=== PATIENT | female | born 1960 | race Caucasian/White ===

== ENCOUNTER → 2024-07-25 11:50 | Outpatient (REF) | payer MEDICARE, BC, SELFPAY ==
[2024-07-25 13:44] LABS: % Basophils 1.2 % (0-2); % Eosinophils 4.7 % (0-6); % Monocytes 8.5 % (1.7-9.3); % Neutrophils 45.6 % (42.2-75.2); Absolute Basophils 0.1 10^3/uL (0-0.2); Absolute Eosinophils 0.2 10^3/uL (0-0.7); Absolute Lymphocytes 1.9 10^3/uL (1.2-3.4); Absolute Monocytes 0.4 10^3/uL (0.1-0.6); Absolute Neutrophils 2.2 10^3/uL (1.4-6.5); Hematocrit 43.4 % (37.0-47.0); Hemoglobin 15.2 g/dL (12.0-16.0); Mean Corpuscular Hgb 34.9 pg (27.0-31.0); Mean Corpuscular Volume 99.8 fL (81.0-99.0); Mean Platelet Volume 12.4 fL (7.4-10.4); Nucleated Red Blood Cells % 0 %; Platelet Count 184 10^3/uL (130-400); Red Blood Cell Count 4.35 10^6/uL (4.20-5.40); White Blood Cell Count 4.9 10^3/uL (4.8-10.8)
[2024-07-25 14:17] LABS: ALT (SGPT) 22 U/L (0-35); AST (SGOT) 25 U/L (14-36); Albumin 5.2 g/dl (3.5-5.0); Alkaline Phosphatase 79 U/L (38-126); Blood Urea Nitrogen 11 mg/dl (7-17); Carbon Dioxide 29 mmol/L (22-30); Chloride 101 mmol/L (98-107); Glucose 93 mg/dl (70-99); HDL Cholesterol 72 mg/dl; LDL Cholesterol, Calculated 112 mg/dl; Potassium 4.8 mmol/L (3.5-5.1); Sodium 141 mmol/L (135-145); Total Bilirubin 0.6 mg/dl (0.2-1.3); Total Cholesterol 200 mg/dl (50-199); Total Protein 7.3 g/dl (6.3-8.2); Triglyceride 82 mg/dl (10-149); Very Low Density Lipoprotein 16 mg/dl (0-30); eGFR > 60.00
[2024-07-25 14:34] LABS: Vitamin D, 25-OH*** 69.8 ng/mL (30-80)
[2024-07-25 15:07] LABS: Vitamin B12 773 pg/ml (239-931)
== END ==
LOC: REG 11:50
PROVIDERS: ATTENDING PHYSICIAN Physician Assistant
DX: M19.90 Unspecified osteoarthritis, unspecified site (principal); E78.00 Pure hypercholesterolemia, unspecified; E53.8 Deficiency of other specified B group vitamins; E55.9 Vitamin D deficiency, unspecified; Z13.228 Encounter for screening for other metabolic disorders
CPT/HCPCS: 36415; 80053; 80061; 82306; 82607; 85025

== ENCOUNTER → 2024-09-16 16:08 | Outpatient (REF) | payer MEDICARE, BC, SELFPAY | LOC: HWWDC 16:08 | PROVIDERS: ATTENDING PHYSICIAN Physician Assistant | DX: Z12.31 Encounter for screening mammogram for malignant neoplasm of breast (principal) | CPT/HCPCS: 77063; 77067 ==

== ENCOUNTER → 2024-09-23 10:28 | Outpatient (REF) | payer MEDICARE, BC, SELFPAY | LOC: HWRAD 10:28 | PROVIDERS: ATTENDING PHYSICIAN Physician Assistant | DX: Z00.00 Encounter for general adult medical examination without abnormal findings (principal); E55.9 Vitamin D deficiency, unspecified; Z78.0 Asymptomatic menopausal state | CPT/HCPCS: 77080 ==

== ENCOUNTER → 2024-10-11 16:05 | Outpatient (REF) | payer MEDICARE, BC, SELFPAY | LOC: HWRAD 16:05 | PROVIDERS: ATTENDING PHYSICIAN Physician Assistant | DX: M54.2 Cervicalgia (principal); M54.6 Pain in thoracic spine; M79.602 Pain in left arm | CPT/HCPCS: 72050; 72072 ==

== ENCOUNTER → 2025-01-15 15:33 | Outpatient (REF) | payer MEDICARE, BC, SELFPAY | LOC: RAD 15:33 | PROVIDERS: ATTENDING PHYSICIAN Physician Assistant | DX: G89.29 Other chronic pain (principal); M25.512 Pain in left shoulder; M25.522 Pain in left elbow | CPT/HCPCS: 73030; 73080 ==